=== PATIENT | male | born 1965 | race African-American/Black ===

== ENCOUNTER 2024-07-29 18:03 | Inpatient (IN) | payer MEDICARE, SELFPAY ==
--- NOTE | ~2024-07-29 | US_ITS ---
EXAMINATION: Ultrasound renal Doppler. CLINICAL INFORMATION: Uncontrolled hypertension. COMPARISON: No priors. TECHNIQUE: Real-time color Doppler interrogation of the main renal arteries and the abdominal aorta at the level of the renal arteries. FINDINGS: Spectral Doppler analysis: Right Kidney: -Peak systolic velocity in the proximal right renal artery = 71 cm/s. Normal waveforms. -Peak systolic velocity in the mid right renal artery = 57 cm/s. Normal waveforms. -Peak systolic velocity in the distal right renal artery = 136 cm/s. Normal waveforms. -Patent right renal vein. -Upper pole interlobar artery resistive index of 0.6. -Midpole interlobar artery resistive index of 0.5. -Lower pole interlobar artery resistive index of 0.4. RAR right = 1.9. Right kidney: 11 x 4 x 4 cm. 2 cm septated anechoic lesion in the lower pole without flow on color Doppler interrogation. No hydronephrosis. Left Kidney: -Peak systolic velocity in the proximal left renal artery = 58 cm/s. Normal waveforms. -Peak systolic velocity in the mid left renal artery = 53 cm/s. Normal waveforms. -Peak systolic velocity in the distal left renal artery = 52 cm/s. Normal waveforms. -Patent left renal vein. . -Upper pole interlobar artery resistive index of 0.5. -Mid pole interlobar artery resistive index of 0.4. -lower pole interlobar artery resistive index of 0.5. RAR left = 1.2. Left kidney: 11 x 5 x 5 cm. No gross solid or cystic lesion. No hydronephrosis. Aorta: -Peak systolic velocity = 72 cm/s.. US/US renal doppler IMPRESSION: No hemodynamically significant stenosis at either main renal artery by ultrasound criteria. 2 cm septated, Bosniak type II cyst, right kidney. Electronically signed by: René Alvares MD 08/09/2024 08:45 AM EDT
--- NOTE | ~2024-07-29 | US_ITS ---
EXAMINATION: Ultrasound renal Doppler. CLINICAL INFORMATION: Uncontrolled hypertension. COMPARISON: No priors. TECHNIQUE: Real-time color Doppler interrogation of the main renal arteries and the abdominal aorta at the level of the renal arteries. FINDINGS: Spectral Doppler analysis: Right Kidney: -Peak systolic velocity in the proximal right renal artery = 71 cm/s. Normal waveforms. -Peak systolic velocity in the mid right renal artery = 57 cm/s. Normal waveforms. -Peak systolic velocity in the distal right renal artery = 136 cm/s. Normal waveforms. -Patent right renal vein. -Upper pole interlobar artery resistive index of 0.6. -Midpole interlobar artery resistive index of 0.5. -Lower pole interlobar artery resistive index of 0.4. RAR right = 1.9. Right kidney: 11 x 4 x 4 cm. 2 cm septated anechoic lesion in the lower pole without flow on color Doppler interrogation. No hydronephrosis. Left Kidney: -Peak systolic velocity in the proximal left renal artery = 58 cm/s. Normal waveforms. -Peak systolic velocity in the mid left renal artery = 53 cm/s. Normal waveforms. -Peak systolic velocity in the distal left renal artery = 52 cm/s. Normal waveforms. -Patent left renal vein. . -Upper pole interlobar artery resistive index of 0.5. -Mid pole interlobar artery resistive index of 0.4. -lower pole interlobar artery resistive index of 0.5. RAR left = 1.2. Left kidney: 11 x 5 x 5 cm. No gross solid or cystic lesion. No hydronephrosis. Aorta: -Peak systolic velocity = 72 cm/s.. US/US renal BI IMPRESSION: No hemodynamically significant stenosis at either main renal artery by ultrasound criteria. 2 cm septated, Bosniak type II cyst, right kidney. Electronically signed by: René Alvares MD 08/09/2024 08:45 AM EDT
--- NOTE | ~2024-07-29 | XR_ITS ---
EXAMINATION: XR CHEST CLINICAL INFORMATION: resp acidosis COMPARISON: None available. TECHNIQUE: Frontal view of the chest was obtained. FINDINGS: No consolidation, pleural effusion or pneumothorax. Hyperinflated lungs. Cardiomediastinal silhouette size is normal. Osseous structures are intact. Mild S-shaped curvature of the thoracic spine. XR/XR chest 1V IMPRESSION: No acute airspace disease. Electronically signed by: René Alvares MD 08/02/2024 01:07 PM EDT RP
[2024-07-29 18:36] VITALS: BMI 19.8
[2024-07-29 18:37] VITALS: PULSE 94; RESP 18; TEMP 37.2; O2SAT 98
--- NOTE | 2024-07-29 19:35 | PC.ADMIT ---
Addendum entered by Christa Jordan RN 07/29/24 19:41: Hemant denies tobacco, etoh or any illicit drugs. Tox screen negative. Original Note: Hemant is a 59 yr old male admitted to at 6:30PM, on a 12b for yen & psychosis. He has a documented history of paranoid schizophrenia.? Question of bipolar disorder (according He recently hasn?t been sleeping. Hemant? lives in an upstairs apartment from his mother, who called EMS when she heard him upstairs banging around.? Patient was acutely psychotic, extremely rapid & pressured speech (st lucian/ creole/jibberish), delusional & speaking pretend Amharic at times stating that he?s best friends with Licha Sanchez. Hemant is [place] Creole. He moved here from [facility] around age 21, worked for [employer] a few years but is now on disability for mental illness.? He has had multiple hospital admissions for psychotic episodes. Pt reportedly has not taken meds for nine years.? While in the ED Hemant required IM ativan & haldol to deescalate (although he was not assaultive).? Meds were effective and today he has been calm & cooperative.? Patient was given two doses of oral KCL for hypokalemia.? On arrival to Hemant is calm but appears anxious & paranoid.? He is A&Ox4, cooperative with intake and asking to call his mother. He denies all psych symptoms, answers questions appropriately but avoids eye contact. Skin check unremarkable. Pt oriented to unit and placed on 15min safety checks.? Patient is hypertensive on initial assessment.? Will re-check & follow-up with provider.
[2024-07-29 19:52] VITALS: BP 207/120; PULSE 88
[2024-07-29 20:00] VITALS: BP 210/118; PULSE 88; RESP 18; TEMP 36.8; O2SAT 99
--- NOTE | 2024-07-29 20:15 | PC.NURSE ---
BP remains elevated, pt asymptomatic. BP 207/120 reported to hospitalist covering, Riccardo Murillo, and psych covering Carolina Lock NP. Riccardo replied and states that he cannot see patient at this time but he'll order something when he gets to a computer. Reported off to night RN to follow.
[2024-07-30] VITALS (11 sets, daily range): BP systolic 146–214; BP diastolic 92–113; PULSE 88–104; RESP 15–16; TEMP 36.6–36.9; O2SAT 97–99
[2024-07-30 08:14] LABS: Alanine Aminotransferase 29 U/L (0-40); Albumin Level 4.6 g/dL (3.5-5.0); Anion Gap 12 (12-20); Aspartate Amino Transferase 30 U/L (5-37); Bilirubin Total 1.3 mg/dL (0.0-1.0); Blood Urea Nitrogen 18 mg/dL (9-16); Calcium 9.4 mg/dL (8.4-10.2); Carbon Dioxide 31 mmol/L (22-29); Chloride 106 mmol/L (96-108); Cholesterol 263 mg/dL (<200); Estimated Glomerular Filt Rate > 60; Glucose Fasting 109 mg/dL (60-99); HDL Cholesterol 77 mg/dL (>40); LDL Cholesterol Calculated 171 mg/dL (<100); Potassium 3.5 mmol/L (3.3-5.1); Sodium 145 mmol/L (135-145); Total Protein 7.9 g/dL (6.5-8.0); Triglycerides 79 mg/dL (<150)
--- NOTE | 2024-07-30 08:40 | P.HPPS_ITS ---
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 He has a documented history of paranoid schizophrenia.? Question of bipolar disorder (according He recently hasn?t been sleeping. Hemant? lives in an upstairs apartment from his mother, who called EMS when she heard him upstairs banging around.? Patient was acutely psychotic, extremely rapid & pressured speech (welsh/ creole/jibberish), delusional & speaking pretend Khmer at times stating that he?s best friends with Licha Sanchez. Hemant is [place] Creole. He moved here from [facility] around age 21, worked for [employer] a few years but is now on disability for mental illness.? He has had multiple hospital admissions for psychotic episodes. Pt reportedly has not taken meds for nine years.? While in the ED Hemant required IM ativan & haldol to deescalate (although he was not assaultive).? Meds were effective and today he has been calm & cooperative.? Patient was given two doses of oral KCL for hypokalemia.? On arrival to Hemant is calm but appears anxious & paranoid.? He is A&Ox4, cooperative with intake and asking to call his mother. He denies all psych symptoms, answers questions appropriately but avoids eye contact. When this provider asked if he lived about his mother he denied, said he moved to [facility] at 8yo =- Past Psychiatric History: pt denies but clearly he does- I bet he is know to [facility] team and it might be worth contacted them- in week - as well as his mother Medical Evaluation Reviewed: Yes Ongoing management needed coordinated with hospitalist who tried several medications today - [facility] Narrative: HTN Family History: unknown Social History: lives above mother , who called EMS- Substance History: denied Trauma History: unknown Diagnostics Vital Signs (24Hr): Vital Signs - 24 hr 07/29/24 18:37 07/29/24 19:52 07/29/24 20:00 Temperature 99 F 98.2 F Pulse Rate 94 88 88 Respiratory Rate 18 18 Blood Pressure 207/120 H 210/118 H Pulse Oximetry 98 99 Oxygen Delivery Method Room Air Room Air 07/30/24 08:00 Temperature 98 F Pulse Rate 88 Respiratory Rate 16 Blood Pressure 182/111 H Pulse Oximetry 99 Oxygen Delivery Method Room Air BMI result Body Mass Index 19.8 Labs 07/30/24 07:45 Labs: Laboratory Results - last 48 hr 07/30/24 07:45 Sodium 145 Potassium 3.5 Chloride 106 Carbon Dioxide 31 H Anion Gap 12 BUN 18 H Creatinine 0.93 Estim Creat Clear Calc 82.0 Estimated GFR > 60 Fasting Glucose 109 H Calcium 9.4 Total Bilirubin 1.3 H AST 30 ALT 29 Total Protein 7.9 Albumin 4.6 Triglycerides 79 Cholesterol 263 H LDL Cholesterol, Calc 171 H HDL Cholesterol 77 Meds/Allergies Meds Home Medications ?Medication ?Instructions ?Recorded ?Confirmed ?Type No Known Home Meds 07/29/24 07/29/24 History Allergies Allergies Allergy/AdvReac Type Severity Reaction Status Date / Time No Known Allergies Allergy Verified 07/29/24 19:32 Mental Status Exam Mental Status Exam Patient Appearance: Appropriate Patient Orientation: Person and Place Level of Consciousness: Awake Patient Behavior: Talkative and Poor Eye Contact Mood Description: Apprehensive Affect Description: Blunted Patient Cognition Impaired: No Ability to Follow Directions: Fair Speech Pattern: Rambling and Mumbled Delusions: Grandiose Thought Process: Illogical Thought Content: positive for Disorganized Abnormal Motor Activity Signs and Symptoms: Restlessness Judgement: Poor Assessment & Plan Assessment & Plan (1) Schizoaffective disorder, bipolar type: Status: Acute Code(s): F25.0 - Schizoaffective disorder, bipolar type (2) Hypertension: Status: Acute Code(s): I10 - Essential (primary) hypertension Plan HTN as per advise of hospitalist Start Olanzapine 5mg qhs- need collateral information from family and possibly [facility] team about past hisotry? if we can gather it- Patient educated on: diagnosis and medication risk/benefits Informed Consent: does not understand and further education needed Reason for continued inpatient stay Substantial Risk for: inability to function and rapid decompensation Statement Statement: I have reviewed the history and physical and performed a pertinent examination on my patient. No changes have occurred unless specified. If the History and Physical was not performed prior to admission, the Hospitalist's service will be consulted for completing the admission physical. Time Spent With Patient Time: Total time managing care of this patient today ____ minutes.
[2024-07-30 09:24] LABS: Alkaline Phosphatase 62 U/L (39-117)
[2024-07-30] MEDS: Losartan Potassium 50 MG TABLET PO ×2 (09:28→20:38)
[2024-07-30] MEDS: amLODIPine Besylate 5 MG TABLET PO ×2 (09:29→12:03)
--- NOTE | 2024-07-30 10:50 | P.CONHOSP_ITS ---
History of Present Illness Data of Consult Service Date: 07/30/24 Requesting physician: Carolina Lock Primary Care Provider: Unknown Physician HPI Reason for consult: medical h&p 59 year old male with no known medical issues admitted to adult psychiatry with consult placed to hospitalist service for medical H&P. The patient is from [facility], moved here when he was 21, and transitions from Botswanan to creole frequently during the exam though is fluent in panamanian. He is difficult to understand due to word salad however does answer specific questions understandably. While in the ED at [facility] K was 2.9 and was given KCl 40meq x2. On arrival, improved to 3.5. He was hypertensive in the ED and continues with uncontrolled htn. He denies hx and does not take antihypertensives. In the ED, labs otherwise were unremarkable. He has no complaints. Review of Systems 2 Review of Systems: Yes all other systems are reviewed and are negative (not reliable historian however) [facility] Social History Household Members: None Household Members Other:: Lives alone but mother lives in downstairs apartment Housing: Apartment Patient Tobacco Use Status: Never used Tobacco Smoked in Last 30 Days: No Use of substances other than those prescribed or required for medical reasons: No Currently Displaying Signs/Symptoms of Drug Intoxication Withdrawal: No Any prior treatment program specific to substance use: No Have you been hit, kicked, punched, or otherwise hurt by someone within the past year? If so, by whom?: No Do you feel safe in your current relationship?: No Current Relationship Is there a partner from a previous relationship who is making you feel unsafe now?: No Are you made to feel afraid or neglected: No Advance Directives: No Advance Directives Information Provided: No Do you have thoughts of harming others: None Do you have a plan to hurt others: No Plan Recently lost weight without trying: No Eating poorly because of decreased appetite: No Nutrition Risks: No Nutritional Risk service: No Sexual orientation: Straight/Heterosexual Meds Allergies Allergy/AdvReac Type Severity Reaction Status Date / Time No Known Allergies Allergy Verified 07/29/24 19:32 Active Medications: Current Medications Acetaminophen (Acetaminophen 325 Mg Tablet) 650 mg PO Q6H PRN PRN Reason: Headache/Pain, Scale 1-10 Al Hydroxide/Mg Hydroxide (Magnesium Hydrox/Alum Hydrox 30 Ml Oral.Susp) 30 ml PO Q6H PRN PRN Reason: Heartburn/Nausea Amlodipine Besylate (Amlodipine Besylate 5 Mg Tablet) 5 mg PO DAILY [facility]; Protocol Last Admin: 07/30/24 09:29 Dose: 5 mg Hydroxyzine HCl (Hydroxyzine Hcl 25 Mg Tablet) 25 mg PO Q6H PRN PRN Reason: mild anxiety Losartan Potassium (Losartan Potassium 50 Mg Tablet) 50 mg PO DAILY [facility]; Protocol Last Admin: 07/30/24 09:28 Dose: 50 mg Magnesium Hydroxide (Milk Of Magnesia 30 Ml Oral.Susp) 30 ml PO DAILY PRN PRN Reason: Constipation Nicotine (Nicotine 21 Mg Patch.Td24) 21 mg TRANSDERMA DAILY [facility] Last Admin: 07/30/24 09:32 Dose: Not Given Nicotine Polacrilex (Nicotine Polacrilex 2 Mg Gum) 4 mg BUCCAL Q2H PRN PRN Reason: Nicotine Cravings Olanzapine (Olanzapine 5 Mg Tablet) 5 mg PO Q4H PRN PRN Reason: agitation Trazodone HCl (Trazodone Hcl 50 Mg Tablet) 50 mg PO BEDTIME MRX1 PRN PRN Reason: Insomnia Home Medications ?Medication ?Instructions ?Recorded ?Confirmed ?Last Taken ?Type No Known Home Meds 07/29/24 07/29/24 Unknown History Physical Exam 2 Vital Signs and Narrative: Vital Signs: Last Vital Signs Temp 98 F 07/30/24 08:00 Pulse 88 07/30/24 08:00 Resp 16 07/30/24 08:00 BP 203/113 H 07/30/24 09:29 Pulse Ox 99 07/30/24 08:00 O2 Del Method Room Air 07/30/24 08:00 BMI result Body Mass Index 19.8 Constitutional - Awake and Alert, No apparent distress Eyes - PERRLA, EOMI Cardiovascular - S1S2, RRR, No edema Respiratory - Normal lung expansion, Normal respiratory effort, No respiratory distress, CTA bilaterally Gastrointestinal - NT / ND; +BS; No rebound or guarding - No CVA tenderness Extremities - no calf tenderness bilaterally, no swelling Musculoskeletal - Normal inspection, normal ROM Skin - Warm/Dry Neurological - moving all extremities independently, A&Ox3, CN II-XII in tact, 5/5 strength BUE and BLE Psychological - flat, word salad and rapid speech Results Labs 07/30/24 07:45 Labs: Laboratory Results - last 24 hr 07/30/24 07:45 Anion Gap 12 Estim Creat Clear Calc 82.0 Estimated GFR > 60 Fasting Glucose 109 H Calcium 9.4 Total Bilirubin 1.3 H AST 30 ALT 29 Alkaline Phosphatase 62 Total Protein 7.9 Albumin 4.6 Triglycerides 79 Cholesterol 263 H LDL Cholesterol, Calc 171 H HDL Cholesterol 77 Assessment and Plan (1) Routine medical exam: Status: Acute Plan 59 year old male with no known medical issues admitted to adult psychiatry with consult placed to hospitalist service for medical H&P. #Paranoid schizophrenia -plan per psychiatry #HTN -denies known history, however significantly uncontrolled -BP improved to 178/98 following increased dose amlodipine 10mg, hctz 25mg added. Continue these and increase losartan to 100mg tomorrow -follow bp closely #Hypokalemia -2.9 at [facility] improved to 3.3 after KCl 40meq x2. Will likely drop again r/t hctz use. Add KCl 20meq BID -Repeat BMP in 3 days Thank you for this consult, will continue following
[2024-07-30] MEDS: hydroCHLOROthiazide 25 MG TABLET PO (12:03)
--- NOTE | 2024-07-30 18:08 | PC.NURSE ---
late entry for 0850, Hemant's bp was 180-200 over 111-113 he denies any physical symptoms relating to HTN currently. Hospitalist Samir and Aleksandra Hughes MD made aware. A Peña BOSS, covering admissions, placed medication orders and saw Hemant. Ordered amlodipine and norvasc, given at 0930 without issue. BP rechecked at 1110, still elevated 214/108, taken manually, still asymptomatic. Reported to A Peña BOSS, additional medications ordered and given at 1200. BP rechecked at 1330 178/98. BP checked again at 1545 172/92.
[2024-07-30] MEDS: Potassium Chloride ER 20 MEQ TAB.ER.PRT PO (20:38)
[2024-07-30] MEDS: OLANZapine 5 MG TABLET PO (20:38)
[2024-07-30] MEDS: traZODone HCL 50 MG TABLET PO (21:51)
[2024-07-30] MEDS: hydrALAZINE HCl 50 MG TABLET PO (22:20)
[2024-07-31 08:00] VITALS: BP 130/77; PULSE 98; RESP 16; TEMP 36.3; O2SAT 97
[2024-07-31] MEDS: Potassium Chloride ER 20 MEQ TAB.ER.PRT PO ×2 (09:23→20:29)
[2024-07-31] MEDS: hydroCHLOROthiazide 25 MG TABLET PO (09:24)
[2024-07-31] MEDS: Losartan Potassium 50 MG TABLET 100 MG PO (09:24)
[2024-07-31] MEDS: amLODIPine Besylate 10 MG TABLET PO (09:24)
--- NOTE | 2024-07-31 11:39 | P.PNPSI_ITS ---
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 - Medication Compliance: Yes Side effects from medications: No Attending Groups: No Review of Systems Acute medical concerns: No Medical Review of Systems: unchanged Mental Status Exam Mental Status Exam Patient Appearance: Appropriate Patient Orientation: Person, Place, Time and Situation Level of Consciousness: Awake Patient Behavior: Cooperative Mood Description: Apathetic Affect Description: Blunted Patient Cognition Impaired: No Ability to Follow Directions: Fair Speech Pattern: Clear and Poor Articulation (or accent?) Delusions: Grandiose Thought Process: Evasive (?) Thought Content: positive for Perseveration Judgement: Poor Diagnostics Vital Signs (24Hr): Vital Signs - 24 hr 07/30/24 13:48 07/30/24 15:45 07/30/24 19:49 Temperature 98.5 F Pulse Rate 100 Respiratory Rate 15 Blood Pressure 178/98 H 172/92 H 146/108 H Pulse Oximetry 97 07/30/24 20:32 07/30/24 21:54 07/30/24 23:20 Temperature Pulse Rate 104 H 100 100 Respiratory Rate Blood Pressure 178/110 H 160/110 H 160/100 H Pulse Oximetry 07/31/24 08:00 Temperature 97.4 F Pulse Rate 98 Respiratory Rate 16 Blood Pressure 130/77 Pulse Oximetry 97 BMI result Body Mass Index 19.8 Labs 07/30/24 07:45 Labs: Laboratory Results - last 48 hr 07/30/24 07:45 Sodium 145 Potassium 3.5 Chloride 106 Carbon Dioxide 31 H Anion Gap 12 BUN 18 H Creatinine 0.93 Estim Creat Clear Calc 82.0 Estimated GFR > 60 Fasting Glucose 109 H Calcium 9.4 Total Bilirubin 1.3 H AST 30 ALT 29 Alkaline Phosphatase 62 Total Protein 7.9 Albumin 4.6 Triglycerides 79 Cholesterol 263 H LDL Cholesterol, Calc 171 H HDL Cholesterol 77 Medications Medications Current Medications Acetaminophen (Acetaminophen 325 Mg Tablet) 650 mg PO Q6H PRN PRN Reason: Headache/Pain, Scale 1-10 Al Hydroxide/Mg Hydroxide (Magnesium Hydrox/Alum Hydrox 30 Ml Oral.Susp) 30 ml PO Q6H PRN PRN Reason: Heartburn/Nausea Amlodipine Besylate (Amlodipine Besylate 10 Mg Tablet) 10 mg PO DAILY [facility]; Protocol Last Admin: 07/31/24 09:24 Dose: 10 mg Hydrochlorothiazide (Hydrochlorothiazide 25 Mg Tablet) 25 mg PO DAILY [facility]; Protocol Last Admin: 07/31/24 09:24 Dose: 25 mg Hydroxyzine HCl (Hydroxyzine Hcl 25 Mg Tablet) 25 mg PO Q6H PRN PRN Reason: mild anxiety Losartan Potassium (Losartan Potassium 50 Mg Tablet) 100 mg PO DAILY [facility]; Protocol Last Admin: 07/31/24 09:24 Dose: 100 mg Magnesium Hydroxide (Milk Of Magnesia 30 Ml Oral.Susp) 30 ml PO DAILY PRN PRN Reason: Constipation Nicotine (Nicotine 21 Mg Patch.Td24) 21 mg TRANSDERMA DAILY [facility] Last Admin: 07/31/24 09:26 Dose: Not Given Nicotine Polacrilex (Nicotine Polacrilex 2 Mg Gum) 4 mg BUCCAL Q2H PRN PRN Reason: Nicotine Cravings Olanzapine (Olanzapine 5 Mg Tablet) 5 mg PO Q4H PRN PRN Reason: agitation Olanzapine (Olanzapine 5 Mg Tablet) 5 mg PO BEDTIME [facility] Last Admin: 07/30/24 20:38 Dose: 5 mg Potassium Chloride (Potassium Chloride Er 20 Meq Tab.Er.Prt) 20 meq PO BID [facility] Last Admin: 07/31/24 09:23 Dose: 20 meq Trazodone HCl (Trazodone Hcl 50 Mg Tablet) 50 mg PO BEDTIME MRX1 PRN PRN Reason: Insomnia Last Admin: 07/30/24 21:51 Dose: 50 mg Allergies Allergies Allergy/AdvReac Type Severity Reaction Status Date / Time No Known Allergies Allergy Verified 07/29/24 19:32 Assessment & Plan Assessment & Plan (1) Schizoaffective disorder, bipolar type: Status: Acute Code(s): F25.0 - Schizoaffective disorder, bipolar type (2) Hypertension: Status: Acute Code(s): I10 - Essential (primary) hypertension Plan HTN as per advise of hospitalist Start Olanzapine 5mg qhs- need collateral information from family and possibly [facility] team about past hisotry? if we can gather it- 07/31/24 bp better control today- took olanzapine last night no s/e and inc to 10mg olanzapine- Patient educated on: medication risk/benefits and medical condition Informed Consent: does not understand Reason for continued inpatient stay Substantial Risk for: inability to function, rapid decompensation and med/psych decompensation Time Spent With Patient Time: Total time managing care of this patient today ____ minutes.
[2024-07-31 19:31] VITALS: BP 154/82; PULSE 87; RESP 15; TEMP 36.8; O2SAT 97
[2024-07-31] MEDS: OLANZapine 10 MG TABLET PO (20:29)
[2024-08-01 07:49] VITALS: BP 160/92; PULSE 81; TEMP 36.7; O2SAT 98
[2024-08-01] MEDS: hydroCHLOROthiazide 25 MG TABLET PO (08:40)
[2024-08-01] MEDS: Losartan Potassium 50 MG TABLET 100 MG PO (08:40)
[2024-08-01] MEDS: Potassium Chloride ER 20 MEQ TAB.ER.PRT PO ×2 (08:40→22:39)
[2024-08-01] MEDS: amLODIPine Besylate 10 MG TABLET PO (08:40)
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
[2024-08-01] MEDS: Paliperidone ER 3 MG TAB.ER.24 PO ×2 (13:44→22:39)
[2024-08-01 13:52] VITALS: BP 181/97; PULSE 97; TEMP 37.3; O2SAT 99
[2024-08-01 14:03] VITALS: BP 176/92; PULSE 96
[2024-08-01] MEDS: hydrOXYzine HCL 25 MG TABLET PO (14:15)
[2024-08-01] MEDS: OLANZapine 5 MG TABLET PO (14:15)
--- NOTE | 2024-08-01 14:20 | PC.NURSE ---
BP 181/97 (automated) & 176/92 (manually), HR 96. Pt is asymptomatic & denies feeling anxious. He received scheduled antihypertensives this morning. Pt has been resting in his bed all day. Elevated BP's reported to KARYN Salazar. Pt is difficult to assess for anxiety, other than what he says. Will administer anti-anxiety med & re-assess BP in an hour.
[2024-08-01 15:19] VITALS: BP 168/86; PULSE 92
--- NOTE | 2024-08-01 15:41 | PC.NURSE ---
BP now 168/86 & HR 92. Reported to KARYN Salazar.
[2024-08-01 20:00] VITALS: BP 161/75; PULSE 90; RESP 18; TEMP 36.6; O2SAT 98
[2024-08-01] MEDS: carvediloL 6.25 MG TABLET PO (22:38)
[2024-08-01] MEDS: OLANZapine 10 MG TABLET PO (22:41)
[2024-08-02 08:21] VITALS: BP 120/77; PULSE 87; TEMP 35.9; O2SAT 100
[2024-08-02 08:45] LABS: Anion Gap 12 (12-20); Blood Urea Nitrogen 21 mg/dL (9-16); Calcium 9.4 mg/dL (8.4-10.2); Carbon Dioxide 35 mmol/L (22-29); Chloride 101 mmol/L (96-108); Creatinine Clr Calc Pharmacy 70.6; Estimated Glomerular Filt Rate > 60; Glucose Random 108 mg/dL (60-115); Potassium 3.2 mmol/L (3.3-5.1); Sodium 145 mmol/L (135-145)
[2024-08-02] MEDS: Paliperidone ER 6 MG TAB.ER.24 PO (08:49)
[2024-08-02] MEDS: hydroCHLOROthiazide 25 MG TABLET PO (08:49)
[2024-08-02] MEDS: Losartan Potassium 50 MG TABLET 100 MG PO (08:50)
[2024-08-02] MEDS: amLODIPine Besylate 10 MG TABLET PO (08:50)
[2024-08-02] MEDS: Potassium Chloride ER 20 MEQ TAB.ER.PRT PO ×2 (08:50→09:47)
[2024-08-02] MEDS: carvediloL 6.25 MG TABLET PO ×2 (08:50→22:10)
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
[2024-08-02 10:20] LABS: VBG Base Excess 11.7 mmol/L; VBG HCO3 39 mmol/L (22-26); VBG pCO2 64 mmHg; VBG pH 7.39 (7.32-7.43); VBG pO2 30 mmHg
[2024-08-02 10:21] LABS: Venous Blood Gas Refer to POC result
[2024-08-02 20:00] VITALS: BP 150/91; PULSE 85; TEMP 36.1; O2SAT 98
[2024-08-02 22:10] VITALS: BP 150/91; PULSE 98
[2024-08-02] MEDS: Paliperidone ER 3 MG TAB.ER.24 PO (22:10)
[2024-08-02] MEDS: Potassium Chloride ER 20 MEQ TAB.ER.PRT 40 MEQ PO (22:10)
[2024-08-02] MEDS: OLANZapine 10 MG TABLET PO (22:11)
[2024-08-03 08:31] VITALS: BP 86/51; PULSE 75; RESP 20; TEMP 35.8; O2SAT 100
[2024-08-03 08:40] VITALS: BP 176/90; PULSE 87; RESP 18; O2SAT 98
[2024-08-03 08:49] VITALS: BP 148/92; PULSE 86
[2024-08-03] MEDS: Potassium Chloride ER 20 MEQ TAB.ER.PRT 40 MEQ PO ×2 (09:05→21:54)
[2024-08-03] MEDS: Losartan Potassium 50 MG TABLET 100 MG PO (09:05)
[2024-08-03] MEDS: hydroCHLOROthiazide 25 MG TABLET PO (09:05)
[2024-08-03] MEDS: carvediloL 6.25 MG TABLET PO ×2 (09:05→21:54)
[2024-08-03] MEDS: amLODIPine Besylate 10 MG TABLET PO (09:05)
[2024-08-03] MEDS: Paliperidone ER 6 MG TAB.ER.24 PO (09:05)
[2024-08-03] MEDS: Paliperidone Palmitate 234 MG/1.5 ML SYRINGE IM (12:55)
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
[2024-08-03 20:00] VITALS: BP 154/81; PULSE 82; TEMP 36.6; O2SAT 99
[2024-08-03 21:54] VITALS: BP 154/81; PULSE 82
[2024-08-03] MEDS: OLANZapine 10 MG TABLET PO (21:54)
[2024-08-03] MEDS: Paliperidone ER 3 MG TAB.ER.24 PO (21:54)
[2024-08-03] MEDS: traZODone HCL 50 MG TABLET PO (21:54)
[2024-08-04 07:00] VITALS: BMI 20.3
[2024-08-04 08:00] VITALS: BP 125/72; PULSE 75; TEMP 36.6; O2SAT 99
[2024-08-04] MEDS: Potassium Chloride ER 20 MEQ TAB.ER.PRT 40 MEQ PO ×2 (08:20→21:26)
[2024-08-04] MEDS: carvediloL 6.25 MG TABLET PO ×2 (08:20→21:26)
[2024-08-04] MEDS: Paliperidone ER 6 MG TAB.ER.24 PO (08:20)
[2024-08-04] MEDS: Losartan Potassium 50 MG TABLET 100 MG PO (08:20)
[2024-08-04] MEDS: amLODIPine Besylate 10 MG TABLET PO (08:20)
[2024-08-04] MEDS: hydroCHLOROthiazide 25 MG TABLET PO (08:21)
[2024-08-04 21:25] VITALS: BP 143/78; PULSE 88; TEMP 36.7; O2SAT 98
[2024-08-04] MEDS: Paliperidone ER 3 MG TAB.ER.24 PO (21:25)
[2024-08-04 21:26] VITALS: BP 143/78; PULSE 88
[2024-08-04] MEDS: OLANZapine 10 MG TABLET PO (21:28)
[2024-08-05 08:00] VITALS: BP 137/80; PULSE 83; RESP 16; TEMP 35.7; O2SAT 99
[2024-08-05] MEDS: Losartan Potassium 50 MG TABLET 100 MG PO (08:42)
[2024-08-05] MEDS: amLODIPine Besylate 10 MG TABLET PO (08:42)
[2024-08-05] MEDS: carvediloL 6.25 MG TABLET PO ×2 (08:43→20:29)
[2024-08-05] MEDS: hydroCHLOROthiazide 25 MG TABLET PO (08:43)
[2024-08-05] MEDS: Potassium Chloride ER 20 MEQ TAB.ER.PRT 40 MEQ PO ×2 (08:44→20:29)
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
[2024-08-05 20:00] VITALS: BP 140/79; PULSE 101; RESP 16; TEMP 35.9; O2SAT 97
[2024-08-05 20:29] VITALS: BP 140/79; PULSE 101
[2024-08-05] MEDS: Paliperidone ER 3 MG TAB.ER.24 PO (20:29)
[2024-08-05] MEDS: OLANZapine 10 MG TABLET PO (20:29)
[2024-08-06 08:00] VITALS: BP 143/85; PULSE 78; RESP 16; TEMP 36.6; O2SAT 98
[2024-08-06] MEDS: Losartan Potassium 50 MG TABLET 100 MG PO (08:20)
[2024-08-06] MEDS: amLODIPine Besylate 10 MG TABLET PO (08:20)
[2024-08-06] MEDS: Potassium Chloride ER 20 MEQ TAB.ER.PRT 40 MEQ PO ×2 (08:20→22:06)
[2024-08-06] MEDS: hydroCHLOROthiazide 25 MG TABLET PO (08:20)
[2024-08-06] MEDS: carvediloL 6.25 MG TABLET PO ×2 (08:21→22:04)
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
[2024-08-06 20:00] VITALS: BP 175/94; PULSE 95; RESP 16; TEMP 36.9; O2SAT 98
[2024-08-06 22:04] VITALS: BP 162/98; PULSE 99
[2024-08-06] MEDS: OLANZapine 5 MG TABLET PO ×2 (22:05)
[2024-08-06] MEDS: traZODone HCL 50 MG TABLET PO (22:06)
[2024-08-07] MEDS: hydroCHLOROthiazide 25 MG TABLET PO (08:25)
[2024-08-07] MEDS: carvediloL 6.25 MG TABLET PO ×2 (08:25→20:57)
[2024-08-07] MEDS: Losartan Potassium 50 MG TABLET 100 MG PO (08:25)
[2024-08-07] MEDS: amLODIPine Besylate 10 MG TABLET PO (08:26)
[2024-08-07] MEDS: Potassium Chloride ER 20 MEQ TAB.ER.PRT 40 MEQ PO ×2 (08:26→20:57)
[2024-08-07 08:27] VITALS: BP 179/94; PULSE 85; RESP 18; TEMP 36.6; O2SAT 100
[2024-08-07 19:42] VITALS: BP 186/92; PULSE 94; TEMP 36.4; O2SAT 98
[2024-08-07 20:57] VITALS: BP 186/92; PULSE 94
[2024-08-07] MEDS: OLANZapine 5 MG TABLET PO (20:57)
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
[2024-08-08] VITALS (7 sets, daily range): BP systolic 154–198; BP diastolic 78–104; PULSE 86–105; RESP 16; TEMP 36.4–36.9; O2SAT 95
[2024-08-08] MEDS: hydroCHLOROthiazide 25 MG TABLET PO (08:07)
[2024-08-08] MEDS: amLODIPine Besylate 10 MG TABLET PO (08:08)
[2024-08-08] MEDS: Potassium Chloride ER 20 MEQ TAB.ER.PRT 40 MEQ PO (08:08)
[2024-08-08] MEDS: Losartan Potassium 50 MG TABLET 100 MG PO (08:08)
[2024-08-08] MEDS: carvediloL 6.25 MG TABLET PO (08:08)
--- NOTE | 2024-08-08 10:08 | PC.NURSE ---
Addendum entered by Donna Ricketts RN 08/08/24 10:20: Pt asymptomatic and denied any physical discomfort. Original Note: BP 171/90 (automated) this morning. Scheduled antihypertensive medication administered as ordered. BP after medications 198/80 (automated). Nelda BOSS updated. BP checked manually 154/78 left arm and 164/82 right arm. Pt refused additional dose of ordered antihypertensive. Nelda BOSS made aware of pt's manual BP readings and refusal of additional dose of antihypertensive medication. Per Nelda BOSS, pt will have manual BP readings going forward.
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
[2024-08-08] MEDS: Paliperidone Palmitate 156 MG/ML SYRINGE IM (14:05)
--- NOTE | 2024-08-08 19:30 | PM.EVENT ---
Event Note Date of Service: 08/08/24 Event Note: Pt remains significantly hypertensive despite now being on 4 antihypertensive agents: amlodipine 10mg HCTZ 25mg Losartan 100mg And Coreg now increased to 12.5mg BID Prior to arrival had hypokalemia 2.9 and given KCl 40meq x2 before transfer. On arrival K only 3.5. KCl was continued on admission given the addition of HCTZ. Renal doppler negative for AMAN. Given hypokalemia and uncontrolled htn, evaluate for aldosteronism or pheochromocytoma Check am aldosterone/renin Check 24 hr metanephrines Check urine electrolytes Repeat BMP Hold HCTZ for now Pending results, will consider nephrology consult. Will continue following Time Spent With Patient Time: Total time managing care of this patient today ____ minutes.
[2024-08-08] MEDS: carvediloL 12.5 MG TABLET PO (21:20)
[2024-08-09 08:00] VITALS: BP 143/85; PULSE 80; RESP 16; TEMP 36.8; O2SAT 97
[2024-08-09 08:45] LABS: Anion Gap 14 (12-20); Blood Urea Nitrogen 18 mg/dL (9-16); Calcium 9.1 mg/dL (8.4-10.2); Carbon Dioxide 31 mmol/L (22-29); Chloride 101 mmol/L (96-108); Creatinine Clr Calc Pharmacy 67.5; Estimated Glomerular Filt Rate > 60; Glucose Random 112 mg/dL (60-115); Sodium 143 mmol/L (135-145)
[2024-08-09 08:47] LABS: Potassium 2.9 mmol/L (3.3-5.1)
[2024-08-09 08:57] LABS: Cortisol Random 10.7 ug/dL
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
[2024-08-09 10:00] VITALS: BP 154/86
[2024-08-09 10:33] LABS: Potassium Urine Random 47.4 mmol/L
[2024-08-09] MEDS: Potassium Chloride Packet 20 MEQ PACKET 60 MEQ PO (10:36)
[2024-08-09] MEDS: Losartan Potassium 50 MG TABLET 100 MG PO (10:36)
[2024-08-09] MEDS: amLODIPine Besylate 10 MG TABLET PO (10:37)
[2024-08-09] MEDS: Spironolactone 25 MG TABLET PO (10:37)
[2024-08-09] MEDS: carvediloL 12.5 MG TABLET PO ×2 (10:37→20:53)
[2024-08-09 16:51] LABS: Anion Gap 11 (12-20); Carbon Dioxide 30 mmol/L (22-29); Chloride 103 mmol/L (96-108); Potassium 3.6 mmol/L (3.3-5.1); Sodium 140 mmol/L (135-145)
--- NOTE | 2024-08-09 19:23 | PM.EVENT ---
Event Note Date of Service: 08/09/24 Event Note: Chart reviewed 59 yr old woman with HTN and hypokalemia and Alkalosis Currently on HCTZ Received K supplement Need to rule out Hyperaldosteronism ( Primary / secondary) Suggest DC HCTZ Replace K Temporarily HOLD Losartan and SPironolactone Check Serum Aldosterone and Plasma Renin Activity atleast 3 days after stopping Losartan/Spironolactone In the mean time , Add Hydralazine 250 mg PO TID and titrate dose to optimize BP Ordered Full consult to follow Time Spent With Patient Time: Total time managing care of this patient today ____ minutes.
[2024-08-09 20:00] VITALS: BP 128/72; PULSE 90; RESP 16; TEMP 36.9; O2SAT 98
[2024-08-09 20:53] VITALS: BP 128/72; PULSE 90
[2024-08-09] MEDS: hydrALAZINE HCl 25 MG TABLET PO (20:53)
[2024-08-09] MEDS: Potassium Chloride Packet 20 MEQ PACKET 40 MEQ PO (20:54)
[2024-08-10] VITALS (8 sets, daily range): BP systolic 134–148; BP diastolic 50–102; PULSE 76–91; RESP 16; TEMP 36.6–37.2; O2SAT 100
--- NOTE | 2024-08-10 01:15 | PC.NURSE ---
Patient's 24 hour urine collection was taken to the lab.
[2024-08-10 08:46] LABS: Anion Gap 12 (12-20); Blood Urea Nitrogen 27 mg/dL (9-16); Calcium 9.3 mg/dL (8.4-10.2); Carbon Dioxide 31 mmol/L (22-29); Chloride 102 mmol/L (96-108); Creatinine Clr Calc Pharmacy 55.2; Estimated Glomerular Filt Rate 51; Glucose Random 108 mg/dL (60-115); Sodium 141 mmol/L (135-145)
[2024-08-10] MEDS: Potassium Chloride Packet 20 MEQ PACKET 40 MEQ PO (09:25)
[2024-08-10] MEDS: amLODIPine Besylate 10 MG TABLET PO (09:25)
[2024-08-10] MEDS: hydrALAZINE HCl 25 MG TABLET PO ×3 (09:26→22:20)
[2024-08-10] MEDS: carvediloL 12.5 MG TABLET PO ×2 (09:26→22:20)
--- NOTE | 2024-08-10 11:14 | PM.EVENT ---
Event Note Date of Service: 08/10/24 Event Note: Blood pressures improved with the addition of spironolactone 25 mg with good improvement of potassium levels as well. However discussed with Nephrology. Hold losartan and spironolactone, which both support potassium levels, for diagnostic purposes to better evaluate for aldosteronism. Previously ordered renin activity, aldosterone, and aldosterone/renin as well as urine metanephrines remain pending. Cortisol level within normal limits. Urine potassium normal. Continue holding losartan and spironolactone for 3 days after which we will again evaluate renin, aldosterone and aldosterone/renin. Discontinued hydrochlorothiazide which had been on hold. K improved to 4.0 this morning following 1 time dose of 60 mEq KCL yesterday morning and 40 mEq KCL last night. We will continue 40 mEq KCl b.i.d. and follow electrolyte levels closely. Given losartan and spironolactone are on hold. Will require additional antihypertensives. Discussed with Nephrology. Hydralazine 25mg TID ordered. Continue amlodipine 10mg and coreg 12.5mg BID. Monitor blood pressures closely Will continue following closely Time Spent With Patient Time: Total time managing care of this patient today ____ minutes.
[2024-08-10 18:45] LABS: Anion Gap 11 (12-20); Carbon Dioxide 29 mmol/L (22-29); Chloride 104 mmol/L (96-108); Potassium 4.6 mmol/L (3.3-5.1); Sodium 139 mmol/L (135-145)
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
[2024-08-11 08:00] VITALS: BP 146/82; PULSE 97; RESP 18; TEMP 37.1
[2024-08-11 09:10] LABS: Anion Gap 12 (12-20); Blood Urea Nitrogen 18 mg/dL (9-16); Carbon Dioxide 31 mmol/L (22-29); Chloride 104 mmol/L (96-108); Creatinine Clr Calc Pharmacy 79.1; Estimated Glomerular Filt Rate > 60; Glucose Random 108 mg/dL (60-115); Potassium 3.7 mmol/L (3.3-5.1); Sodium 143 mmol/L (135-145)
[2024-08-11 09:40] VITALS: BP 146/82
[2024-08-11] MEDS: amLODIPine Besylate 10 MG TABLET PO (09:40)
[2024-08-11] MEDS: hydrALAZINE HCl 25 MG TABLET PO ×3 (09:41→21:04)
[2024-08-11] MEDS: carvediloL 12.5 MG TABLET PO ×2 (09:41→21:04)
[2024-08-11] MEDS: Potassium Chloride Packet 20 MEQ PACKET 40 MEQ PO (09:41)
[2024-08-11 17:26] VITALS: BP 136/84
--- NOTE | 2024-08-11 18:56 | P.CONNP_ITS ---
History of Present Illness Reason for Consult Consult date: 08/11/24 Reason for consult: MICHELLE Chief Complaint Chief complaint: Unspecified bipolar d/o History of Present Illness Narrative: 59 year old male who was admitted to adult psychiatry . While in the ED at [facility] K was 2.9 and was given KCl 40meq x2. On arrival, improved to 3.5. He was hypertensive in the ED and continues with uncontrolled htn. He denies hx and does not take antihypertensives. In the ED, labs otherwise were unremarkable. He did develop MICHELLE during his hospitalization. He has no complaints. Nephrology has been consulted to assist in his clinical care during his current hospital stay. Review of Systems Review of Systems Yes all other systems are reviewed and are negative [facility] Social History Social History Household Members: None Household Members Other:: Lives alone but mother lives in downstairs apartment Housing: Apartment Patient Tobacco Use Status: Never used Tobacco Smoked in Last 30 Days: No Use of substances other than those prescribed or required for medical reasons: No Currently Displaying Signs/Symptoms of Drug Intoxication Withdrawal: No Any prior treatment program specific to substance use: No Have you been hit, kicked, punched, or otherwise hurt by someone within the past year? If so, by whom?: No Do you feel safe in your current relationship?: No Current Relationship Is there a partner from a previous relationship who is making you feel unsafe now?: No Are you made to feel afraid or neglected: No Advance Directives: No Advance Directives Information Provided: No Do you have thoughts of harming others: None Do you have a plan to hurt others: No Plan Recently lost weight without trying: No Eating poorly because of decreased appetite: No Nutrition Risks: No Nutritional Risk service: No Sexual orientation: Straight/Heterosexual Meds Allergies Allergy/AdvReac Type Severity Reaction Status Date / Time No Known Allergies Allergy Verified 07/29/24 19:32 Active Medications: Current Medications Acetaminophen (Acetaminophen 325 Mg Tablet) 650 mg PO Q6H PRN PRN Reason: Headache/Pain, Scale 1-10 Al Hydroxide/Mg Hydroxide (Magnesium Hydrox/Alum Hydrox 30 Ml Oral.Susp) 30 ml PO Q6H PRN PRN Reason: Heartburn/Nausea Amlodipine Besylate (Amlodipine Besylate 10 Mg Tablet) 10 mg PO DAILY [facility]; Protocol Last Admin: 08/11/24 09:40 Dose: 10 mg Carvedilol (Carvedilol 12.5 Mg Tablet) 12.5 mg PO BID [facility]; Protocol Last Admin: 08/11/24 09:41 Dose: 12.5 mg Hydralazine HCl (Hydralazine Hcl 25 Mg Tablet) 25 mg PO TID [facility]; Protocol Last Admin: 08/11/24 17:26 Dose: 25 mg Hydroxyzine HCl (Hydroxyzine Hcl 25 Mg Tablet) 25 mg PO Q6H PRN PRN Reason: mild anxiety Last Admin: 08/01/24 14:15 Dose: 25 mg Losartan Potassium (Losartan Potassium 50 Mg Tablet) 100 mg PO DAILY [facility]; Protocol Last Admin: 08/09/24 10:36 Dose: 100 mg Magnesium Hydroxide (Milk Of Magnesia 30 Ml Oral.Susp) 30 ml PO DAILY PRN PRN Reason: Constipation Nicotine (Nicotine 21 Mg Patch.Td24) 21 mg TRANSDERMA DAILY PRN PRN Reason: Nicotine Cravings Nicotine Polacrilex (Nicotine Polacrilex 2 Mg Gum) 4 mg BUCCAL Q2H PRN PRN Reason: Nicotine Cravings Potassium Chloride (Potassium Chloride Packet 20 Meq Packet) 40 meq PO DAILY [facility] Last Admin: 08/11/24 09:41 Dose: 40 meq Potassium Chloride (Potassium Chloride Packet 20 Meq Packet) 20 meq PO BEDTIME SAL Trazodone HCl (Trazodone Hcl 50 Mg Tablet) 50 mg PO BEDTIME MRX1 PRN PRN Reason: Insomnia Last Admin: 08/06/24 22:06 Dose: 50 mg Home Medications ?Medication ?Instructions ?Recorded ?Confirmed ?Last Taken ?Type No Known Home Meds 07/29/24 07/29/24 Unknown History Physical Exam Vital Signs: Last Vital Signs Temp 98.7 F 08/11/24 08:00 Pulse 97 08/11/24 08:00 Resp 18 08/11/24 08:00 BP 136/84 08/11/24 17:26 Pulse Ox 100 08/10/24 20:00 O2 Del Method Room Air 08/11/24 08:00 BMI result Body Mass Index 20.3 Const General: no acute distress Eyes EOM: EOMs intact bilaterally Neck Neck: Yes supple Resp Auscultation: diminished lung sounds Cardio Rate: regular rate GI Palpation (GI): Soft to palpation Neuro General: moves all extremities Results Lab Results 08/11/24 08:06 Lab results: Chemistry 08/09/24 08/09/24 08/10/24 08:02 15:52 08:22 Sodium 143 140 141 Potassium 2.9 L* 3.6 D 4.0 Carbon Dioxide 31 H 30 H 31 H BUN 18 H 27 H Creatinine 1.16 1.42 H Calcium 9.1 9.3 08/10/24 08/11/24 18:27 08:06 Sodium 139 143 Potassium 4.6 3.7 Carbon Dioxide 29 31 H BUN 18 H Creatinine 0.99 Calcium 9.0 Assessment and Plan (1) Hypertension: Qualifiers: Hypertension type: primary hypertension Qualified Code(s): I10 - Essential (primary) hypertension Status: Acute (2) Hypokalemia: Status: Acute (3) MICHELLE (acute kidney injury): Status: Acute Plan MICHELLE likely due to tubular injury . Has held losartan and HCTZ with improvement in renal function Blood pressures improved with optimization of medications. W/U in progress.C/W current mgt for now Procedures Date of Service Date of Service: 08/11/24
--- NOTE | 2024-08-11 19:22 | P.PNPSI_ITS ---
Subjective Subjective Date of Service: 08/11/24 Reason For Visit: Unspecified bipolar d/o Interim History: Met with pt, review with team. He reports being pleased to return home on 08/12. Denies SI,HI. Reports no medication SE and no questions today regarding treatment. No sx of acute psychosis or yen are noted. Medication Compliance: Yes Side effects from medications: No Diagnostics Vital Signs (24Hr): Vital Signs - 24 hr 08/10/24 20:00 08/10/24 22:10 08/10/24 22:20 Temperature 98.9 F Pulse Rate 91 82 82 Respiratory Rate 16 Blood Pressure 147/89 H 148/102 H 148/102 H Pulse Oximetry 100 Oxygen Delivery Method Room Air 08/10/24 22:20 08/10/24 23:50 08/11/24 08:00 Temperature 98.7 F Pulse Rate 97 Respiratory Rate 18 Blood Pressure 148/102 H 148/50 H 146/82 H Pulse Oximetry Oxygen Delivery Method Room Air 08/11/24 09:40 08/11/24 17:26 Temperature Pulse Rate Respiratory Rate Blood Pressure 146/82 H 136/84 Pulse Oximetry Oxygen Delivery Method BMI result Body Mass Index 20.3 Labs 08/11/24 08:06 Labs: Laboratory Results - last 48 hr 08/10/24 08/10/24 08/11/24 08:22 18:27 08:06 Sodium 141 139 143 Potassium 4.0 4.6 3.7 Chloride 102 104 104 Carbon Dioxide 31 H 29 31 H Anion Gap 12 11 L 12 BUN 27 H 18 H Creatinine 1.42 H 0.99 Estim Creat Clear Calc 55.2 79.1 Estimated GFR 51 > 60 Random Glucose 108 108 Calcium 9.3 9.0 Imaging Radiology Impressions: ITS Impressions Chest X-Ray 08/02/24 12:57 IMPRESSION: No acute airspace disease. Electronically signed by: René Alvares MD 08/02/2024 01:07 PM EDT RP Renal Ultrasound 08/08/24 16:36 IMPRESSION: No hemodynamically significant stenosis at either main renal artery by ultrasound criteria. 2 cm septated, Bosniak type II cyst, right kidney. Electronically signed by: René Alvares MD 08/09/2024 08:45 AM EDT RP Renal Ultrasound 08/08/24 16:36 IMPRESSION: No hemodynamically significant stenosis at either main renal artery by ultrasound criteria. 2 cm septated, Bosniak type II cyst, right kidney. Electronically signed by: René Alvares MD 08/09/2024 08:45 AM EDT RP Medications Medications Current Medications Acetaminophen (Acetaminophen 325 Mg Tablet) 650 mg PO Q6H PRN PRN Reason: Headache/Pain, Scale 1-10 Al Hydroxide/Mg Hydroxide (Magnesium Hydrox/Alum Hydrox 30 Ml Oral.Susp) 30 ml PO Q6H PRN PRN Reason: Heartburn/Nausea Amlodipine Besylate (Amlodipine Besylate 10 Mg Tablet) 10 mg PO DAILY [facility]; Protocol Last Admin: 08/11/24 09:40 Dose: 10 mg Carvedilol (Carvedilol 12.5 Mg Tablet) 12.5 mg PO BID [facility]; Protocol Last Admin: 08/11/24 09:41 Dose: 12.5 mg Hydralazine HCl (Hydralazine Hcl 25 Mg Tablet) 25 mg PO TID [facility]; Protocol Last Admin: 08/11/24 17:26 Dose: 25 mg Hydroxyzine HCl (Hydroxyzine Hcl 25 Mg Tablet) 25 mg PO Q6H PRN PRN Reason: mild anxiety Last Admin: 08/01/24 14:15 Dose: 25 mg Losartan Potassium (Losartan Potassium 50 Mg Tablet) 100 mg PO DAILY [facility]; Protocol Last Admin: 08/09/24 10:36 Dose: 100 mg Magnesium Hydroxide (Milk Of Magnesia 30 Ml Oral.Susp) 30 ml PO DAILY PRN PRN Reason: Constipation Nicotine (Nicotine 21 Mg Patch.Td24) 21 mg TRANSDERMA DAILY PRN PRN Reason: Nicotine Cravings Nicotine Polacrilex (Nicotine Polacrilex 2 Mg Gum) 4 mg BUCCAL Q2H PRN PRN Reason: Nicotine Cravings Potassium Chloride (Potassium Chloride Packet 20 Meq Packet) 40 meq PO DAILY [facility] Last Admin: 08/11/24 09:41 Dose: 40 meq Potassium Chloride (Potassium Chloride Packet 20 Meq Packet) 20 meq PO BEDTIME SAL Trazodone HCl (Trazodone Hcl 50 Mg Tablet) 50 mg PO BEDTIME MRX1 PRN PRN Reason: Insomnia Last Admin: 08/06/24 22:06 Dose: 50 mg Allergies Allergies Allergy/AdvReac Type Severity Reaction Status Date / Time No Known Allergies Allergy Verified 07/29/24 19:32 Assessment & Plan Assessment & Plan (1) Hypertension: Qualifiers: Hypertension type: primary hypertension Qualified Code(s): I10 - Essential (primary) hypertension Status: Acute Code(s): I10 - Essential (primary) hypertension (2) Hypokalemia: Status: Acute Code(s): E87.6 - Hypokalemia (3) MICHELLE (acute kidney injury): Status: Acute Code(s): N17.9 - Acute kidney failure, unspecified Plan MICHELLE likely due to tubular injury . Has held losartan and HCTZ with improvement in renal function Blood pressures improved with optimization of medications. W/U in progress.C/W current mgt for now 08/11- Pt reports no issues of concern psychiatrically today. He is talking of discharge and feeling pleased about going home. Nephrology eval continues, they suggest continue current eval and plan remain in place . Losartan, Spironolactone are held x 3D and renin, aldosterone, aldosterone/renin will be reassessed. Hydralazine/Amlodipine/Coreg for BP. BP today 146/82 x2 and 136/84. Reason for continued inpatient stay Substantial Risk for: med/psych decompensation Time Spent With Patient Time: Total time managing care of this patient today ____ minutes.
[2024-08-11 21:00] VITALS: BP 145/76; PULSE 81; RESP 16; TEMP 36.6; O2SAT 99
[2024-08-11] MEDS: Potassium Chloride Packet 20 MEQ PACKET PO (21:05)
[2024-08-12 08:00] VITALS: BP 146/96; PULSE 80
[2024-08-12] MEDS: amLODIPine Besylate 10 MG TABLET PO (08:09)
[2024-08-12] MEDS: hydrALAZINE HCl 25 MG TABLET PO (08:09)
[2024-08-12] MEDS: carvediloL 12.5 MG TABLET PO (08:09)
[2024-08-12] MEDS: Potassium Chloride Packet 20 MEQ PACKET 40 MEQ PO (08:10)
[2024-08-12 08:55] LABS: Anion Gap 14 (12-20); Blood Urea Nitrogen 13 mg/dL (9-16); Calcium 9.3 mg/dL (8.4-10.2); Carbon Dioxide 28 mmol/L (22-29); Chloride 105 mmol/L (96-108); Creatinine Clr Calc Pharmacy 80.8; Estimated Glomerular Filt Rate > 60; Glucose Random 101 mg/dL (60-115); Potassium 3.6 mmol/L (3.3-5.1); Sodium 143 mmol/L (135-145)
--- NOTE | 2024-08-12 09:30 | HO.PSYCHPN ---
Subjective Subjective Date of Service: 08/12/24 Reason For Visit: Unspecified bipolar d/o Interim History: Blood pressures improved with the addition of spironolactone 25 mg with good improvement of potassium levels as well. However discussed with Nephrology. Hold losartan and spironolactone, which both support potassium levels, for diagnostic purposes to better evaluate for aldosteronism. Previously ordered renin activity, aldosterone, and aldosterone/renin as well as urine metanephrines remain pending. Cortisol level within normal limits. Urine potassium normal. Continue holding losartan and spironolactone for 3 days after which we will again evaluate renin, aldosterone and aldosterone/renin. Discontinued hydrochlorothiazide which had been on hold. K improved to 4.0 this morning following 1 time dose of 60 mEq KCL yesterday morning and 40 mEq KCL last night. We will continue 40 mEq KCl b.i.d. and follow electrolyte levels closely. ??then why 20mg qhs? Given losartan and spironolactone are on hold. Will require additional antihypertensives. Hydralazine 25mg TID ordered. Continue amlodipine 10mg and Continue coreg 12.5mg BID. Diagnostics Vital Signs (24Hr): Vital Signs - 24 hr 08/11/24 09:40 08/11/24 17:26 08/11/24 21:00 Temperature 97.8 F Pulse Rate 81 Respiratory Rate 16 Blood Pressure 146/82 H 136/84 145/76 H Pulse Oximetry 99 Oxygen Delivery Method Room Air 08/12/24 08:00 Temperature Pulse Rate 80 Respiratory Rate Blood Pressure 146/96 H Pulse Oximetry Oxygen Delivery Method BMI result Body Mass Index 20.3 Labs 08/12/24 08:16 Labs: Laboratory Results - last 48 hr 08/10/24 08/11/24 08/12/24 18:27 08:06 08:16 Sodium 139 143 143 Potassium 4.6 3.7 3.6 Chloride 104 104 105 Carbon Dioxide 29 31 H 28 Anion Gap 11 L 12 14 BUN 18 H 13 Creatinine 0.99 0.97 Estim Creat Clear Calc 79.1 80.8 Estimated GFR > 60 > 60 Random Glucose 108 101 Calcium 9.0 9.3 Imaging Radiology Impressions: ITS Impressions Chest X-Ray 08/02/24 12:57 IMPRESSION: No acute airspace disease. Electronically signed by: René Alvares MD 08/02/2024 01:07 PM EDT RP Renal Ultrasound 08/08/24 16:36 IMPRESSION: No hemodynamically significant stenosis at either main renal artery by ultrasound criteria. 2 cm septated, Bosniak type II cyst, right kidney. Electronically signed by: René Alvares MD 08/09/2024 08:45 AM EDT RP Renal Ultrasound 08/08/24 16:36 IMPRESSION: No hemodynamically significant stenosis at either main renal artery by ultrasound criteria. 2 cm septated, Bosniak type II cyst, right kidney. Electronically signed by: René Alvares MD 08/09/2024 08:45 AM EDT RP Medications Medications Current Medications Acetaminophen (Acetaminophen 325 Mg Tablet) 650 mg PO Q6H PRN PRN Reason: Headache/Pain, Scale 1-10 Al Hydroxide/Mg Hydroxide (Magnesium Hydrox/Alum Hydrox 30 Ml Oral.Susp) 30 ml PO Q6H PRN PRN Reason: Heartburn/Nausea Amlodipine Besylate (Amlodipine Besylate 10 Mg Tablet) 10 mg PO DAILY [facility]; Protocol Last Admin: 08/12/24 08:09 Dose: 10 mg Carvedilol (Carvedilol 12.5 Mg Tablet) 12.5 mg PO BID SAL; Protocol Last Admin: 08/12/24 08:09 Dose: 12.5 mg Hydralazine HCl (Hydralazine Hcl 25 Mg Tablet) 25 mg PO TID SAL; Protocol Last Admin: 08/12/24 08:09 Dose: 25 mg Hydroxyzine HCl (Hydroxyzine Hcl 25 Mg Tablet) 25 mg PO Q6H PRN PRN Reason: mild anxiety Last Admin: 08/01/24 14:15 Dose: 25 mg Losartan Potassium (Losartan Potassium 50 Mg Tablet) 100 mg PO DAILY SAL; Protocol Last Admin: 08/09/24 10:36 Dose: 100 mg Magnesium Hydroxide (Milk Of Magnesia 30 Ml Oral.Susp) 30 ml PO DAILY PRN PRN Reason: Constipation Nicotine (Nicotine 21 Mg Patch.Td24) 21 mg TRANSDERMA DAILY PRN PRN Reason: Nicotine Cravings Nicotine Polacrilex (Nicotine Polacrilex 2 Mg Gum) 4 mg BUCCAL Q2H PRN PRN Reason: Nicotine Cravings Potassium Chloride (Potassium Chloride Packet 20 Meq Packet) 40 meq PO DAILY SAL Last Admin: 08/12/24 08:10 Dose: 40 meq Potassium Chloride (Potassium Chloride Packet 20 Meq Packet) 20 meq PO BEDTIME SAL Last Admin: 08/11/24 21:05 Dose: 20 meq Trazodone HCl (Trazodone Hcl 50 Mg Tablet) 50 mg PO BEDTIME MRX1 PRN PRN Reason: Insomnia Last Admin: 08/06/24 22:06 Dose: 50 mg Allergies Allergies Allergy/AdvReac Type Severity Reaction Status Date / Time No Known Allergies Allergy Verified 07/29/24 19:32 Assessment & Plan Assessment & Plan (1) Hypertension: Qualifiers: Hypertension type: primary hypertension Qualified Code(s): I10 - Essential (primary) hypertension Status: Acute Code(s): I10 - Essential (primary) hypertension (2) Hypokalemia: Status: Acute Code(s): E87.6 - Hypokalemia (3) MICHELLE (acute kidney injury): Status: Acute Code(s): N17.9 - Acute kidney failure, unspecified Plan MICHELLE likely due to tubular injury . Has held losartan and HCTZ with improvement in renal function Blood pressures improved with optimization of medications. W/U in progress.C/W current mgt for now 08/11- Pt reports no issues of concern psychiatrically today. He is talking of discharge and feeling pleased about going home. Nephrology eval continues, they suggest continue current eval and plan remain in place . Losartan, Spironolactone are held x 3D and renin, aldosterone, aldosterone/renin will be reassessed. Hydralazine/Amlodipine/Coreg for BP. BP today 146/82 x2 and 136/84. Time Spent With Patient Time: Total time managing care of this patient today ____ minutes.
--- NOTE | 2024-08-12 11:20 | PM.EVENT ---
Event Note Date of Service: 08/12/24 Event Note: Pt is a 59-year-old male admitted [facility] with hospitalist consult for follow up on HTN management. Pt denies previous PMH of HTN and not previously on antihypertensives, with the pt significantly hypertensive as high as 214/108 what with the unit. Also has been experiencing hypokalemia both upon initial ED presentation and while on the unit that has required potassium supplementation. Pt subsequently placed on up to 4 antihypertensives including losartan, Coreg, hydrochlorothiazide, and spironolactone. Pt did develop an MICHELLE during hospital stay which was resolved with medication changes. Renal artery U/S negative for renal artery stenosis. Pt also seen by Nephrology and subsequently worked up for primary aldosteronism and pheochromocytoma. Pt is being discharged today and request has been made for discharge medications and instructions for follow-up. Since medication changes patient's BP has been much better controlled, as well as chemistries: Potassium low normal and creatinine back to baseline as per labs this morning. Plan: Continue current antihypertensive regimen: Amlodipine 10 mg daily, carvedilol 12.5 mg b.i.d., and hydralazine 25 mg t.i.d. Continue potassium supplementation: Potassium chloride 40 mEq daily and 20 mEq at bedtime Initial workup for primary aldosteronism negative; was set to have repeat levels drawn tomorrow morning, but given better BP control low suspicion for aldosteronism Workup for pheochromocytoma still pending, though again likely negative given BP control with medication changes Should follow up with PCP in 1 week's time for repeat labs to monitor potassium and creatinine as well as monitoring BP levels Currently no need to follow up with Nephrology unless electrolytes become unbalanced, kidney function worsens, or pheochromocytoma workup positive Given pt's MICHELLE and hypokalemia, would suggest avoiding hydrochlorothiazide; can consider adding spironolactone if potassium continues to be low or need 4th antihypertensive agent Time Spent With Patient Time: Total time managing care of this patient today ____ minutes.
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
[2024-08-15 18:19] LABS: Aldosterone/Renin Ratio 16.2 Ratio (0.9-28.9); Plasma Renin Activity 0.99 ng/mL/h (0.25-5.82)
[2024-08-15 18:29] LABS: Metanephrine, Free 24U 386 mcg/24 h (90-315); Normetanephrine, Free 24U 912 mcg/24 h (122-676); Total Metanephrine, Free 24U 1298 mcg/24 h (224-832); Total Volume 24U 1600 mL
== END 2024-08-12 14:15 | disposition home or self-care (01) | DRG 885 ==
PROVIDERS: Physician Assistant; Registered Nurse; Admitting Provider Psychiatry & Neurology Psychiatry; Visit Provider Psychiatry & Neurology Psychiatry
DX: F25.0 Schizoaffective disorder, bipolar type (principal); N17.9 Acute kidney failure, unspecified; E87.6 Hypokalemia; I10 Essential (primary) hypertension; Z91.148 Patient's other noncompliance with medication regimen for other reason; Z79.899 Other long term (current) drug therapy
CPT/HCPCS: 36415; 71045; 76775; 80048; 80051; 80053; 80061; 82088; 82436; 82533; 82803; 83735; 83835; 84133; 84300; 93975; J2426

== ENCOUNTER 2024-07-29 18:03 | Outpatient (BNV) | payer MEDICARE, SELFPAY | END 2024-08-02 12:57 | PROVIDERS: Admitting Provider Psychiatry & Neurology Psychiatry; Visit Provider Radiology Diagnostic Radiology | DX: E87.29 Other acidosis (principal) | CPT/HCPCS: 71045 ==

== ENCOUNTER 2024-07-29 18:03 | Outpatient (BNV) | payer MEDICARE, SELFPAY | END 2024-08-08 16:36 | PROVIDERS: Admitting Provider Psychiatry & Neurology Psychiatry; Visit Provider Radiology Diagnostic Radiology | DX: I10 Essential (primary) hypertension (principal); N28.1 Cyst of kidney, acquired | CPT/HCPCS: 93975 ==

== ENCOUNTER → 2024-07-29 18:03 | Outpatient (BNV) | payer MEDICARE, SELFPAY | PROVIDERS: Admitting Provider Psychiatry & Neurology Psychiatry; Visit Provider Internal Medicine Hypertension Specialist | DX: I10 Essential (primary) hypertension (principal); E87.6 Hypokalemia; N17.9 Acute kidney failure, unspecified | CPT/HCPCS: 99222; 99499 ==

== ENCOUNTER → 2024-07-29 18:03 | Outpatient (BNV) | payer MEDICARE, SELFPAY | PROVIDERS: Admitting Provider Psychiatry & Neurology Psychiatry; Visit Provider Physician Assistant | DX: Z00.00 Encounter for general adult medical examination without abnormal findings (principal) | CPT/HCPCS: 99499 ==

== ENCOUNTER → 2024-07-29 18:03 | Outpatient (BNV) | payer MEDICARE, SELFPAY | PROVIDERS: Admitting Provider Psychiatry & Neurology Psychiatry; Visit Provider Psychiatry & Neurology Psychiatry | DX: F25.0 Schizoaffective disorder, bipolar type (principal); I10 Essential (primary) hypertension | CPT/HCPCS: 99232 ==